=== PATIENT | male | born 1965 | race Caucasian/White ===

== ENCOUNTER → 2016-03-28 | Outpatient (REF) ==
--- NOTE | 2016-03-28 11:39 | DI ---
Examination: Two radiographic images of the chest. Comparison: 05/24/2014. Reason for study: Annual screening. FINDINGS: No pneumothorax, pleural effusion, or focal consolidation. The cardiac silhouette is not enlarged. No acute osseous abnormalities. Impression: No acute cardiopulmonary findings.
== END ==
LOC: RAD 10:40
DX: Z02.89 Encounter for other administrative examinations (principal)

== ENCOUNTER 2016-04-02 10:26 | Day surgery (SDC) ==
[2016-04-02] MEDS ORDERED: DIPRIVAN 20 ML VIAL IVP ONE ×2 (11:45→12:09)
[2016-04-02] MEDS ORDERED: VERSED ONE ×2 (11:45→12:09)
[2016-04-02] MEDS ORDERED: SUBLIMAZE ONE (12:09)
[2016-04-02 13:23] VITALS: BP 114/72; TEMP 98.7
--- NOTE | 2016-04-03 09:14 | OP ---
PROCEDURE: COLONOSCOPY TO THE CECUM. ENDOSCOPIST: Harris CASPER M.D. INDICATION: SCREENING. INSTRUMENT: [id number]. MEDICATION: PER ANESTHESIA. PROCEDURE: The patient was positioned for colonoscopy. The digital rectal exam was negative. The colonoscope was inserted through the anus and advanced to the cecum. The cecum was identified using the ileocecal valve and the appendiceal orifice as landmarks. The scope was slowly withdrawn through an adequately prepped colon. The exam was normal throughout. Retroflex exam was normal. Withdrawal time 8 minutes, 46 seconds. PLAN: 1. Repeat colonoscopy in 10 years. CC: DR. DEVANG LACKEY
== END 2016-04-02 13:45 | disposition home or self-care (01) ==
LOC: SURG 10:26
PROVIDERS: ATTEND Internal Medicine Gastroenterology
DX: Z12.11 Encounter for screening for malignant neoplasm of colon (principal)

== ENCOUNTER 2017-03-20 13:56 | Outpatient (REF) ==
--- NOTE | 2017-03-20 14:20 | DI ---
EXAM: Chest two view, frontal and lateral views. HISTORY: Employment screening. COMPARISON: 03/28/2016. FINDINGS: The heart size is normal. There is no pulmonary vascular congestion. The lungs are clear . No pleural effusion or pneumothorax is seen. No acute osseous abnormality identified. Since the prior study, there has been no significant interval change. IMPRESSION: No acute cardiopulmonary process.
== END 2017-03-20 13:57 | disposition home or self-care (01) ==
LOC: RAD 13:56
DX: Z02.89 Encounter for other administrative examinations (principal)